=== PATIENT | female | born 2000 | race Caucasian/White ===

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

== ENCOUNTER 2022-01-31 19:54 | Emergency (ER) | payer OTHER, MEDICAID ==
[2022-01-31] MEDS ORDERED: Ketorolac 30 MG/ML SDV IM ONE (20:19)
[2022-01-31] MEDS ORDERED: diphenhydrAMINE 50 MG/ML SDV IM ONE (20:19)
[2022-01-31] MEDS ORDERED: Prochlorperazine 10 MG/2 ML SDV IM ONE (20:19)
[2022-01-31 21:21] VITALS: BP 126/75; PULSE 89
== END 2022-01-31 20:45 | disposition home or self-care (01) ==
LOC: VM.ED 19:54
DX: G43.909 Migraine, unspecified, not intractable, without status migrainosus (principal)
CPT/HCPCS: 96372; 99283; J0780; J1200; J1885